=== PATIENT | male | born 1965 | race Caucasian/White ===

== ENCOUNTER 2019-12-27 11:01 | Day surgery (SDC) | payer BC, OTHER ==
[~2019-12-27 11:01] MED LIST: Lactated Ringers 1,000 ML IV SCH; Propofol 200 MG/20 ML SDV ONE; Sodium Chloride 0.9% 10 ML Syringe FLUSH PRN
[2019-12-27] MEDS ORDERED: Propofol 200 MG/20 ML SDV ONE ×2 (12:16→12:26)
--- NOTE | 2019-12-27 12:16 | PCM.PN ---
- General Info Date of Service: 12/27/19 - Review of Systems Systems Review Comment:: 54-year-old male referred for colonoscopy. This is his first colon exam.He did have some diarrhea during a trip to [place]. It is reported that a CT scan done there did show findings consistent with colitis. He is medically stable to proceed today. His recent history and physical is reviewed and no significant changes are noted. I have discussed the proposed colonoscopy with the patient. Risks such as but not limited to bleeding and GI injury reviewed. He agrees to proceed. - Patient Data Vitals - Most Recent: Last Vital Signs Temp 98.1 F 12/27/19 12:10 Pulse 71 12/27/19 12:10 Resp 20 12/27/19 12:10 BP Pulse Ox 96 12/27/19 12:10 Weight - Most Recent: 111.13 kg Med Orders - Current: Current Medications Lactated Ringer's (Ringers, Lactated) 1,000 mls @ 125 mls/hr IV ASDIRECTED DIVYA Last Admin: 12/27/19 12:08 Dose: 125 mls/hr Sodium Chloride (Saline Flush) 10 ml FLUSH ASDIRECTED PRN PRN Reason: Keep Vein Open Discontinued Medications Propofol (Diprivan 20 Ml) Confirm Administered Dose 400 mg .ROUTE .STK-MED ONE Stop: 12/27/19 10:23 Sepsis Event Note - Focused Exam Vital Signs: Vital Signs Temp Pulse Resp Pulse Ox 12/27/19 12:10 98.1 F 71 20 96 Date Exam was Performed: 12/27/19 Time Exam was Performed: 12:15 - Problem List Review Problem List Initiated/Reviewed/Updated: Yes - Assessment Assessment:: colon cancer screening Recent history of diarrhea - Plan Plan:: colonoscopy
--- NOTE | 2019-12-27 12:48 | PCM.OPNOTE ---
- General Post-Op/Procedure Note Date of Surgery/Procedure: 12/27/19 Operative Procedure(s): Colonoscopy with Biopsy Findings: normal-appearing colon and terminal ileum Pre Op Diagnosis: history of colitis Post-Op Diagnosis: normal colon Anesthesia Technique: MAC Primary Surgeon: Huseyin Chun Pathology: biopsies of terminal ileum, right and left colons EBL in mLs: 2 Complications: None Condition: Good
--- NOTE | 2019-12-27 13:53 | OR ---
Date of Procedure: 12/27/2019 PREOPERATIVE DIAGNOSIS: History of colitis. POSTOPERATIVE DIAGNOSIS: Normal colon. OPERATIONS PERFORMED: Colonoscopy with biopsy. INDICATIONS FOR SURGERY: This 54-year-old male comes today for his initial colonoscopy. He did have a recent illness and was diagnosed with colitis. FINDINGS: The lining of the patient's colon and terminal ileum appeared normal. No visible signs of inflammation or other abnormalities were noted. No polyps were seen. DESCRIPTION OF PROCEDURE: The patient was taken to the operating room. He was given intravenous sedation, and with him in the left lateral decubitus position, a digital rectal exam was performed showing no rectal masses. The Olympus colonoscope was inserted into the rectum. Retroflexed examination of the rectal canal was performed. The scope was then carefully advanced under direct visualization through the entire length of the colon until the cecum was reached. Cecal acquisition was confirmed by noting the normal internal cecal anatomy including the appendiceal orifice and ileocecal valve. The ileocecal valve was cannulated and the terminal ileum examined and it also appeared normal. Random biopsies of the terminal ileum were taken. The scope was then slowly withdrawn sequentially re-examining the colonic segments. During withdrawal of the scope, random biopsies of the right and left colon were taken because of his history of colitis. After the entire colon and rectum had been fully examined, and with no sign of any complication, the scope was removed and the patient was taken from the operating room in satisfactory condition. ESTIMATED BLOOD LOSS: 2 mL. COMPLICATIONS: None. PROGNOSIS: Good. FREDERIC Chun MD /[id number]
[2019-12-27 15:36] VITALS: BP 146/99; PULSE 67
== END 2019-12-27 13:56 | disposition home or self-care (01) ==
LOC: LL.SDS 11:01
PROVIDERS: ATTEND Surgery
DX: R19.7 Diarrhea, unspecified (principal); R35.1 Nocturia; E78.2 Mixed hyperlipidemia; Z79.82 Long term (current) use of aspirin; Z79.01 Long term (current) use of anticoagulants; Z87.19 Personal history of other diseases of the digestive system; Z79.899 Other long term (current) drug therapy; E66.9 Obesity, unspecified; Z68.32 Body mass index [BMI] 32.0-32.9, adult
CPT/HCPCS: 45380; J2704; J7120

== ENCOUNTER 2020-10-20 01:21 | Emergency (ER) | payer OTHER ==
[2020-10-20 02:02] VITALS: BP 145/78; PULSE 89
--- NOTE | 2020-10-20 02:16 | EDM.PDOC ---
ED HPI GENERAL MEDICAL PROBLEM - General Chief Complaint: Headache Stated Complaint: chills, body aches, headache Time Seen by Provider: 10/20/20 02:00 Source of Information: Reports: Patient History Limitations: Reports: No Limitations - History of Present Illness INITIAL COMMENTS - FREE TEXT/NARRATIVE: He presents to the emergency department by private vehicle complaining of fevers, chills, diffuse body aches and headache. Does have some nausea but no vomiting. Symptoms started about 10 hours earlier. No cough or shortness of breath. No dizziness or lightheadedness. No chest pain or tightness. No known exposures. He works in a manufacturing plant. He has not taken any medications or done any other treatment. 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 Respiratory History: Reports: Sleep Apnea Musculoskeletal History: Reports: Gout, Other (See Below) Other Musculoskeletal History: plantar fasciitis, left. Psychiatric History: Reports: Anxiety - Infectious Disease History Infectious Disease History: Reports: Novel Coronavirus - Past Surgical History Cardiovascular Surgical History: Reports: Vascular Surgery Other Cardiovascular Surgeries/Procedures: ligation and division long saphenous vein saphenofemoral junction GI Surgical History: Reports: Cholecystectomy, Hernia Repair/Other Social & Family History - Tobacco Use Tobacco Use Status *Q: Never Tobacco User Second Hand Smoke Exposure: No - Caffeine Use Caffeine Use: Reports: None - Alcohol Use Days Per Week of Alcohol Use: 7 Number of Drinks Per Day: 2 Total Drinks Per Week: 14 - Recreational Drug Use Recreational Drug Use: No ED ROS GENERAL - Review of Systems Review Of Systems: See Below Constitutional: Reports: Fever, Chills, Fatigue HEENT: Denies: Ear Pain, Rhinitis, Throat Pain Respiratory: Denies: Shortness of Breath, Cough Cardiovascular: Denies: Chest Pain, Lightheadedness, Palpitations GI/Abdominal: Reports: Nausea. Denies: Abdominal Pain, Diarrhea, Vomiting : Denies: Dysuria, Frequency, Urgency Musculoskeletal: Reports: Joint Pain, Muscle Pain Skin: Denies: Jaundice, Rash Neurological: Reports: Headache. Denies: Confusion, Dizziness, Numbness, Syncope, Tingling Psychiatric: Denies: Anxiety, Depression ED EXAM, GENERAL - Physical Exam Exam: See Below Exam Limited By: No Limitations General Appearance: Alert, WD/WN, No Apparent Distress Nose: Normal Inspection, Normal Mucosa Throat/Mouth: Normal Inspection, Normal Lips, Normal Teeth, Normal Gums, Normal Oropharynx, Normal Voice Head: Atraumatic, Normocephalic Neck: Supple, Non-Tender Respiratory/Chest: No Respiratory Distress, Lungs Clear, Normal Breath Sounds Cardiovascular: Regular Rate, Rhythm, No Murmur GI/Abdominal: Normal Bowel Sounds, Soft, Non-Tender, No Mass Neurological: Alert, Oriented, Normal Cognition Psychiatric: Normal Affect, Normal Mood Skin Exam: Warm, Dry Course - Vital Signs Last Recorded V/S: Last Vital Signs Temp 36.7 C 10/20/20 01:34 Pulse 89 10/20/20 02:01 Resp 20 10/20/20 01:34 BP 145/78 H 10/20/20 02:01 Pulse Ox 100 10/20/20 02:01 - Orders/Labs/Meds Orders: Active Orders 24 hr Category Date Time Status Isolation [COMM] Routine Oth 10/20/20 01:39 Active Labs: Laboratory Tests 10/20/20 Range/Units 01:40 SARS-CoV-2 Ag (Rapid) Positive A (NEGATIVE) - Re-Assessments/Exams Free Text/Narrative Re-Assessment/Exam: 10/20/20 02:15 Influenza B is positive. Departure - Departure Time of Disposition: 02:15 Disposition: Home, Self-Care 01 Condition: Good Clinical Impression: COVID-19, Influenza B - Discharge Information *PRESCRIPTION DRUG MONITORING PROGRAM REVIEWED*: Not Applicable *COPY OF PRESCRIPTION DRUG MONITORING REPORT IN PATIENT TAD: Not Applicable Instructions: Influenza, Adult, COVID-19 Forms: ED Department Discharge Additional Instructions: Push fluids. Ibuprofen 800 mg 3 times daily with food for 5 days. Tylenol up to 4 times daily as needed for additional control of pain and/or fever. Tamiflu 75 mg twice daily for 5 days. Quarantine at home for 2 weeks. Follow-up with worsening symptoms. Sepsis Event Note (ED) - Evaluation Sepsis Screening Result: No Definite Risk - Focused Exam Vital Signs: Vital Signs Temp Pulse Resp BP Pulse Ox 10/20/20 02:01 89 145/78 H 100 10/20/20 01:34 36.7 C 78 20 149/77 H 100 - Problem List & Annotations (1) COVID-19 SNOMED Code(s): 637591075 Code(s): U07.1 - COVID-19 Status: Acute (2) Influenza B SNOMED Code(s): 11194474 Code(s): J10.1 - FLU DUE TO OTH IDENT INFLUENZA VIRUS W OTH RESP MANIFEST Status: Acute - Problem List Review Problem List Initiated/Reviewed/Updated: Yes - My Orders Last 24 Hours: My Active Orders 10/20/20 01:39 Isolation [COMM] Routine - Assessment/Plan Last 24 Hours: My Active Orders 10/20/20 01:39 Isolation [COMM] Routine Plan: Push fluids. Ibuprofen 800 mg 3 times daily with food for 5 days. Tylenol up to 4 times daily as needed for additional control of pain and/or fever. Tamiflu 75 mg twice daily for 5 days. Quarantine at home for 2 weeks. Follow-up with worsening symptoms.
[2020-10-20] MEDS: Ibuprofen 200 MG Tab PO ONE (02:26)
== END 2020-10-20 02:30 | disposition home or self-care (01) ==
LOC: LL.ED 01:21
DX: U07.1 COVID-19 (principal); J10.1 Influenza due to other identified influenza virus with other respiratory manifestations; F41.9 Anxiety disorder, unspecified; M10.9 Gout, unspecified; Z79.899 Other long term (current) drug therapy; Z79.82 Long term (current) use of aspirin
CPT/HCPCS: 36415; 87426; 87804; 99283; A9270-GY

== ENCOUNTER 2021-10-30 14:33 | Emergency (ER) | payer OTHER ==
[2021-10-30] MEDS ORDERED: Ketorolac 30 MG/ML SDV IM ONE (14:55)
[2021-10-30] MEDS ORDERED: Diazepam 5 MG Tab PO ONE (14:55)
[2021-10-30 15:10] VITALS: PULSE 70
== END 2021-10-30 18:25 | disposition home or self-care (01) ==
LOC: LL.ED 14:33
DX: M54.6 Pain in thoracic spine (principal); M62.830 Muscle spasm of back; E78.00 Pure hypercholesterolemia, unspecified; M10.9 Gout, unspecified; Z79.82 Long term (current) use of aspirin; Z79.01 Long term (current) use of anticoagulants
CPT/HCPCS: 36415; 70450; 72072; 72100; 72125; 85025; 85610; 96372; 99284-25; A9270-GY; J1885

== ENCOUNTER 2022-09-29 17:58 | Emergency (ER) | payer OTHER ==
[2022-09-29 18:57] LABS: ANION GAP 9.2 meq/L (7-15); CHLORIDE,CL 103 mmol/L (98-107); ESTIMATED GFR 91 mL/min (>=60); SODIUM,NA 137 mmol/L (136-145)
[2022-09-29] MEDS ORDERED: Acetaminophen 500 MG Tab PO ONE (19:11)
[2022-09-29 21:10] VITALS: BP 144/99; PULSE 65
== END 2022-09-29 19:45 | disposition home or self-care (01) ==
LOC: LL.ED 17:58
DX: S06.0X0A Concussion without loss of consciousness, initial encounter (principal); W01.198A Fall on same level from slipping, tripping and stumbling with subsequent striking against other object, initial encounter
CPT/HCPCS: 36415; 70450; 80053; 85025; 99284; A9270-GY